=== PATIENT | male | born 1940 | race Caucasian/White ===

== ENCOUNTER 2019-10-12 12:02 | Observation (INO) | payer MEDICARE, OTHER ==
[~2019-10-12] VITALS: Ht 177.8 cm; Wt 107.4 kg
[~2019-10-12 12:02] MED LIST: ASPI325 PO; ASPI81CH PO; AZELASTINE205.5 MCG/; Aspir 8181 MG PO; Avodart0.5 MG GT; BACL10 PO; BENADRYL PO; DESO.05TCA; ELIQUIS5 MG PO; IBUP800 PO; IBUPROFEN200 MG; LOVA20 PO; METR70GEL; MULVITMINF PO; Mobic15 MG; Norco 5-325 Ta1 EACH PO; OMEP20ER; OTC ANTACID; Senna8.6 MG PO; TAMS.4ER PO; TEMA30; TRAM50 PO
[2019-10-12 12:31] LABS: BASOPHILS ABSOLUTE AUTO 0.04 K/mm3 (0.00-0.23); BASOPHILS PERCENT AUTO 1 % (0-2); EOSINOPHILS ABSOLUTE AUTO 0.31 K/mm3 (0.00-0.68); EOSINOPHILS PERCENT AUTO 5 % (0-6); Hematocrit 49.2 % (37.0-53.0); Hemoglobin 15.5 g/dL (13.5-17.5); IMMATURE GRAN ABSOLUTE AUTO 0.02 K/mm3 (0.00-0.10); IMMATURE GRAN PERCENT AUTO 0 % (0-1); LYMPHOCYTES ABSOLUTE AUTO 1.09 K/mm3 (0.84-5.20); LYMPHOCYTES PERCENT AUTO 16 % (21-46); MONOCYTES ABSOLUTE AUTO 0.55 K/mm3 (0.16-1.47); MONOCYTES PERCENT AUTO 8 % (4-13); Mean Corpuscular HGB 27.8 pg (26.0-34.0); Mean Corpuscular HGB Conc 31.5 g/dL (31.5-36.5); Mean Corpuscular Volume 88 fL (80-100); Mean Platelet Volume 10.7 fL (9.1-12.4); NEUTROPHILS ABSOLUTE AUTO 4.85 K/mm3 (1.96-9.15); NEUTROPHILS PERCENT AUTO 71 % (41-73); Platelet Count 154 K/mm3 (150-400); RDW Coefficient Variation 15.7 % (11.7-14.2); RDW Standard Deviation 50.5 fL (35.1-46.3); Red Blood Cell Count 5.58 M/mm3 (4.30-5.90); White Blood Cell Count 6.86 K/mm3 (4.00-11.30)
[2019-10-12 12:51] LABS: Albumin, Blood 3.8 g/dL (3.4-5.0); Bilirubin, Total 0.9 mg/dL (0.1-1.0); Calcium, Blood 9.3 mg/dL (8.5-10.1); Creatinine, Blood 1.68 mg/dL (0.60-1.20); Globulin, Blood 3.8 g/dL (2.2-4.0); Potassium, Blood 4.9 mmol/L (3.5-5.5); Total Protein, Blood 7.6 g/dL (6.4-8.2); Troponin I 0.024 ng/mL (0.000-0.040)
[2019-10-12] MEDS ORDERED: TEMA30 PO (13:16)
[2019-10-12] MEDS ORDERED: TORSE20 PO (13:17)
[2019-10-12] MEDS ORDERED: AZELASTINE137 MCG/0. (13:18)
[2019-10-12] MEDS ORDERED: POTA10T PO (13:20)
[2019-10-12] MEDS ORDERED: FUROSEMIDE40 MG PO (13:20)
[2019-10-12] MEDS ORDERED: Mobic15 MG PO (13:22)
[2019-10-12] MEDS ORDERED: OMEPRAZOLE MAGN20 MG PO (13:27)
[2019-10-12] MEDS ORDERED: LOVA40 PO (13:28)
[2019-10-12] MEDS ORDERED: Flonase 0.05% N16 GM (13:45)
[2019-10-12] MEDS ORDERED: Ibuprofen Ib200 MG PO (13:45)
--- NOTE | 2019-10-12 17:17 | NUR ---
PT ADMITTED TODAY FOR CP. PATIENT HAS NO COMPLAINTS OF PAIN, SOB, OR NV. HE IS A/O X 4 AND INDEPENDENT IN THE ROOM. HE IS ABLE TO EXPRESS ANY NEEDS. TELE REPORTS FREQUENT PVC'S , RIGHT BBB, AND PAC'S. DOCTOR NOTIFIED. PATIENT IS IN NO DISTRESS. HE IS RESTING IN BED AT THIS TIME.
--- NOTE | 2019-10-12 22:44 | NUR ---
1930 PT RESTING COMFORTABLY IN BED; DENIES CHEST PAIN OR SOB; ALERT AND ORIENTED X 4; PT TAUGHT TO CALL THIS NURSE ANY CHEST PAIN, HEADACHE, SOB OR ANYTHING JUST DOESN'T FEEL RIGHT REENA WITH ACKNOWLEDGEMENT NOTED.
--- NOTE | 2019-10-13 04:15 | NUR ---
SHIFT SUMMARY: 79 Y/O MALE RESTED COMFORTABLY ALL SHIFT; DENIES CHEST PAIN, NAUSEA OR DYSPNEA; TELEMETRY REFLECTS NSR WITH OCCASIONAL PVC/PAC WITH HEART RATE 66 PER HANNAH--DRILLING MANAGER; ALERT AND ORIENTED X 4; LAST TROPONIN .037 AT 0137; BED LOW POSITION WITH CALL LIGHT AT SIDE.
--- NOTE | 2019-10-13 11:00 | NUR ---
PT TO DISCHARGE HOME. NO NEW MEDS. NURSE INSTRUCTED PATIENT AND TO FOLLOW UP WITH PCP. PATIENT HAD IV REMOVED, NO SS OF INFECTION NOTED. PATIENT TO DRESS SELF AND WILL BE WALKED OUT BY STAFF.
== END 2019-10-13 11:45 | disposition home or self-care (01) ==
LOC: ER 12:02 → MEDS 12:03 → ENPENDDIS 10-13 10:46 → MEDS 10-13 11:45
PROVIDERS: Physician Assistant; ADMIT Hospitalist
DX: R07.89 Other chest pain (principal); I48.92 Unspecified atrial flutter; N18.3 Chronic kidney disease, stage 3 (moderate); I50.32 Chronic diastolic (congestive) heart failure; K21.9 Gastro-esophageal reflux disease without esophagitis; E78.5 Hyperlipidemia, unspecified; Z96.653 Presence of artificial knee joint, bilateral; Z79.899 Other long term (current) drug therapy; Z90.49 Acquired absence of other specified parts of digestive tract; Z87.891 Personal history of nicotine dependence
CPT/HCPCS: 36415; 71046; 80053; 83690; 83880; 84484; 85025; 93005; 93010; 99285-25; G0378

== ENCOUNTER 2021-05-27 14:28 | Emergency (ER) | payer MEDICARE, OTHER ==
[~2021-05-27] VITALS: Ht 177.8 cm; Wt 102.1 kg
[~2021-05-27 14:28] MED LIST changes: +AZELASTINE137 MCG/0.; +FUROSEMIDE40 MG PO; +Flonase 0.05% N16 GM; +Ibuprofen Ib200 MG PO; +LOVA40 PO; +Mobic15 MG PO; +OMEPRAZOLE MAGN20 MG PO; +POTA10T PO; +TEMA30 PO; +TORSE20 PO
[2021-05-27 16:10] LABS: BASOPHILS ABSOLUTE AUTO 0.06 K/mm3 (0.00-0.23); BASOPHILS PERCENT AUTO 1 % (0-2); EOSINOPHILS ABSOLUTE AUTO 0.21 K/mm3 (0.00-0.68); EOSINOPHILS PERCENT AUTO 4 % (0-6); Hematocrit 45.3 % (37.0-53.0); Hemoglobin 13.9 g/dL (13.5-17.5); IMMATURE GRAN ABSOLUTE AUTO 0.01 K/mm3 (0.00-0.10); IMMATURE GRAN PERCENT AUTO 0 % (0-1); LYMPHOCYTES ABSOLUTE AUTO 1.24 K/mm3 (0.84-5.20); LYMPHOCYTES PERCENT AUTO 21 % (21-46); MONOCYTES ABSOLUTE AUTO 0.58 K/mm3 (0.16-1.47); MONOCYTES PERCENT AUTO 10 % (4-13); Mean Corpuscular HGB 25.8 pg (26.0-34.0); Mean Corpuscular HGB Conc 30.7 g/dL (31.5-36.5); Mean Corpuscular Volume 84 fL (80-100); Mean Platelet Volume 10.3 fL (9.1-12.4); NEUTROPHILS PERCENT AUTO 64 % (41-73); Platelet Count 163 K/mm3 (150-400); Red Blood Cell Count 5.39 M/mm3 (4.30-5.90)
[2021-05-27 16:27] LABS: Albumin, Blood 3.6 g/dL (3.4-5.0); Albumin/Globulin Ratio 0.9 (0.8-1.8); Bilirubin, Total 1.1 mg/dL (0.1-1.0); Bun/Creatinine Ratio 10.9 (12.0-20.0); Creatinine, Blood 1.83 mg/dL (0.60-1.20); Globulin, Blood 3.9 g/dL (2.2-4.0); Potassium, Blood 4.3 mmol/L (3.5-5.5); Total Protein, Blood 7.5 g/dL (6.4-8.2)
[2021-05-27 16:58] LABS: Prothrombin Time Results >90.0 Sec (9.7-11.5)
[2021-05-27 17:00] LABS: International Normalized Ratio >10.00
[2021-05-27 17:51] LABS: Free Thyroxine 0.9 ng/dL (0.70-1.60); Magnesium, Blood 2.1 mg/dL (1.6-2.4)
[2021-05-27 17:53] LABS: Phosphorus, Blood 3.6 mg/dL (2.5-4.9); Thyroid Stimulating Hormone 3.17 uIU/mL (0.360-4.800)
== END 2021-05-27 19:01 | disposition home or self-care (01) ==
LOC: ER 14:28
PROVIDERS: Physician Assistant
DX: R79.1 Abnormal coagulation profile (principal); E78.5 Hyperlipidemia, unspecified; I48.92 Unspecified atrial flutter; I49.3 Ventricular premature depolarization; Z87.891 Personal history of nicotine dependence
CPT/HCPCS: 36415; 80053; 83735; 84100; 84439; 84443; 85025; 85610; 93005; 93010; 99283-25; A9270

== ENCOUNTER 2022-02-03 09:55 | Day surgery (SDC) | payer MEDICARE, OTHER ==
[~2022-02-03] VITALS: Ht 177.8 cm; Wt 101.2 kg
[2022-02-03] MEDS ORDERED: LEVOTHYROXINE (10:52)
[2022-02-03] MEDS ORDERED: ASPI81CH (10:52)
[2022-02-03] MEDS ORDERED: Lovastatin20 MG (10:52)
[2022-02-03] MEDS ORDERED: Coumadin2 MG (10:52)
[2022-02-03] MEDS ORDERED: OMEP20ER (10:52)
--- NOTE | 2022-02-03 10:55 | NUR ---
02/03/22 1055 ANIYA LANDERS TETRACAINE EYE DROPS GIVEN AT 10:43, PLEGETTE PLACED AT 10:47
== END 2022-02-03 12:16 | disposition home or self-care (01) ==
LOC: ORSCSDS 09:55
PROVIDERS: Ophthalmology
PROC: 08RJ3JZ Replacement of Right Lens with Synthetic Substitute, Percutaneous Approach (ICD-10-PCS; principal; 2022-02-03 11:30)
DX: H25.11 Age-related nuclear cataract, right eye (principal); I12.9 Hypertensive chronic kidney disease with stage 1 through stage 4 chronic kidney disease, or unspecified chronic kidney disease; N18.9 Chronic kidney disease, unspecified; E07.9 Disorder of thyroid, unspecified; Z79.899 Other long term (current) drug therapy; Z79.01 Long term (current) use of anticoagulants; Z79.82 Long term (current) use of aspirin
CPT/HCPCS: J2001; J2250; J3010; J3301; J7040; V2632

== ENCOUNTER 2022-02-12 08:56 | Day surgery (SDC) | payer MEDICARE, OTHER ==
[~2022-02-12] VITALS: Ht 177.8 cm; Wt 101.9 kg
[~2022-02-12 08:56] MED LIST changes: +ASPI81CH; +Coumadin2 MG; +LEVOTHYROXINE; +Lovastatin20 MG
== END 2022-02-12 10:58 | disposition home or self-care (01) ==
LOC: ORSCSDS 08:56
PROVIDERS: Ophthalmology
PROC: 08RK3JZ Replacement of Left Lens with Synthetic Substitute, Percutaneous Approach (ICD-10-PCS; principal; 2022-02-12 10:30)
DX: H25.12 Age-related nuclear cataract, left eye (principal); I10 Essential (primary) hypertension; I48.91 Unspecified atrial fibrillation; R06.02 Shortness of breath; K21.9 Gastro-esophageal reflux disease without esophagitis; E03.9 Hypothyroidism, unspecified; E66.9 Obesity, unspecified; Z68.35 Body mass index [BMI] 35.0-35.9, adult; Z79.01 Long term (current) use of anticoagulants; Z79.899 Other long term (current) drug therapy
CPT/HCPCS: J2001; J2250; J3010; J3301; J7040; V2632

== ENCOUNTER 2022-10-27 12:41 | Inpatient (IN) | payer MEDICARE, OTHER ==
[~2022-10-27] VITALS: Ht 177.8 cm; Wt 90.6 kg
[~2022-10-27 12:41] MED LIST changes: -Coumadin2 MG; +Coumadin2 MG PO; -LEVOTHYROXINE; +LEVSOD25 PO; -Lovastatin20 MG; +Lovastatin20 MG PO; +OMEP20ER PO
[2022-10-27 13:14] LABS: Hematocrit 48.2 % (37.0-53.0); Hemoglobin 15.8 g/dL (13.5-17.5); Mean Corpuscular HGB 28.3 pg (26.0-34.0); Mean Corpuscular HGB Conc 32.8 g/dL (31.5-36.5); Mean Corpuscular Volume 86 fL (80-100); Mean Platelet Volume 10.6 fL (9.1-12.4); NRBC ABSOLUTE 0.02 K/mm3 (0.00-0.02); NRBC Auto 0.3 /100 WBC (0.0-0.2); Platelet Count 227 K/mm3 (150-400); RDW Coefficient Variation 18.4 % (11.7-14.2); RDW Standard Deviation 56.1 fL (35.1-46.3); Red Blood Cell Count 5.59 M/mm3 (4.30-5.90); White Blood Cell Count 6.52 K/mm3 (4.00-11.30)
[2022-10-27 13:40] LABS: Albumin, Blood 2.6 g/dL (3.4-5.0); Albumin/Globulin Ratio 0.5 (0.8-1.8); Bilirubin, Total 3.8 mg/dL (0.1-1.0); Bun/Creatinine Ratio 26.7 (12.0-20.0); Calcium, Blood 9.6 mg/dL (8.5-10.1); Creatinine, Blood 1.61 mg/dL (0.60-1.20); Globulin, Blood 5.6 g/dL (2.2-4.0); Potassium, Blood 3.8 mmol/L (3.5-5.5); Total Protein, Blood 8.2 g/dL (6.4-8.2)
[2022-10-27 14:09] LABS: Influenza B, PCR NEGATIVE (NEGATIVE); Resp Syncytial Virus, PCR NEGATIVE (NEGATIVE); SARS-Cov-2 (COVID-19) PCR, MMC NEGATIVE (NEGATIVE)
[2022-10-27 14:15] LABS: Influenza A, PCR POSITIVE (NEGATIVE)
[2022-10-27 14:25] LABS: BAND PERCENT MAN 5 % (0-8); BASOPHILS PERCENT MAN 0 % (0-2); EOSINOPHILS PERCENT MAN 0 % (0-6); LYMPHOCYTES ABSOLUTE MAN 0.97 K/mm3 (0.84-5.20); LYMPHOCYTES PERCENT MAN 15 % (21-46); MONOCYTES ABSOLUTE MAN 0.39 K/mm3 (0.16-1.47); MONOCYTES PERCENT MAN 6 % (4-13); NEUTROPHILS ABSOLUTE MAN 5.15 K/mm3 (1.96-9.15); SEG NEUTROPHILS PERCENT MAN 74 % (41-73); TOTAL CELLS COUNTED 100
[2022-10-27 15:19] LABS: PCO2 Arterial 33.2 mmHg (35-45); PO2 Arterial 50.2 mmHg (80-100); pH Blood Arterial 7.51 (7.35-7.45)
[2022-10-27 15:49] LABS: International Normalized Ratio 1.74; Prothrombin Time Results 17.6 Sec (9.7-11.5)
[2022-10-27 16:06] LABS: Bilirubin, Direct 2.2 mg/dL (0.0-0.3); Bilirubin, Indirect 1.2 mg/dL (0.1-0.7); Bilirubin, Total 3.4 mg/dL (0.1-1.0)
--- NOTE | 2022-10-27 18:25 | NUR ---
ADDMISSION SUMMARY PT HAS BEEN RESTING IN BED SINCE ARRIVAL. PT ARRIVED TO THE DEPARTMENT BY GURNEY, THEY WERE TRANSFERRED BY A MODERATE 2-PERSON PIVOT TRANSFER, THEY WERE UNSTEADY ON THEIR FEET AND DID NOT FOLLOW INSTRUCTION WELL. PT IS ORIENTED TO SELF ONLY, MULTIPLE ATTEMPTS TO REORIENT WERE MADE UNSUCCESSFULLY. PT WAS PLEASANT AND COOPERATIVE, THEY ARE BEING VISUALLY MONITORED ON CENTRAL MONITORING. NORMAL SALINE BOLUS WAS COMPLETED AND MAINTENANCE IV FLUIDS WERE STARTED.
--- NOTE | 2022-10-27 18:52 | NUR ---
MEDICAL POA Daughter Guillermina Powell called and states that she is medical POA. [phone].
--- NOTE | 2022-10-27 19:38 | NUR ---
KAHLIL - WANDA ONTIVEROS (DAUGHTER) [phone]
--- NOTE | 2022-10-27 21:32 | NUR ---
PHYSICIAN NOTIFIED PT CONT TO ATTEMPT TO CLIMB OUT OF BED. CONFUSED AND PULLING AT LINES AND 02 TUBING. ORDERS FOR ONE TIME DOSE OF SEOQUEL 25 MG NOW.
--- NOTE | 2022-10-27 21:47 | NUR ---
UPDATE SEROQUEL HELD D/T QTC PROLONGATION
[2022-10-28 03:53] LABS: Hematocrit 42.7 % (37.0-53.0); Mean Corpuscular HGB Conc 32.8 g/dL (31.5-36.5); Mean Corpuscular Volume 85 fL (80-100); Platelet Count 169 K/mm3 (150-400); RDW Coefficient Variation 17.4 % (11.7-14.2); RDW Standard Deviation 54.4 fL (35.1-46.3)
[2022-10-28 04:10] LABS: Prothrombin Time Results 20.1 Sec (9.7-11.5)
[2022-10-28 04:13] LABS: Bun/Creatinine Ratio 29.9 (12.0-20.0); Calcium, Blood 8.6 mg/dL (8.5-10.1); Creatinine, Blood 1.27 mg/dL (0.60-1.20); Magnesium, Blood 2.2 mg/dL (1.6-2.4); Potassium, Blood 4.3 mmol/L (3.5-5.5)
--- NOTE | 2022-10-28 05:44 | NUR ---
SHIFT SUMMARY PT ALERT TO SELF. CONFUSED AND ATTEMPTING TO PULL AT LINES AND GET OUT OF BED. PHYSICIAN NOTIFIED AND ORDERS FOR 1 MG OF ATIVAN GIVEN. PT RESTING AFTER ATIVAN GIVEN. PT CONT TO HAVE NONSENSICAL SPEECH T/O SHIFT. BED ALARM IN PLACE. HR STABLE. BP STABLE. OXYGEN SATURATION MAINTAINED ABOVE 92% ON 6 L VIA NC. NO CP OR PRESSURE REPORTED. CALL LIGHT WITHIN REACH. PT HAS CONDOM CATH IN PLACE D/T URINARY INCONTINENCE. DRAINING TO GRAVITY. PT FARHEENENLINDEN ON CAMERA. WILL CONT TO MONITOR UNTIL REPORT GIVEN TO ARTEMIO RN.
--- NOTE | 2022-10-28 17:54 | NUR ---
PT SUMMARY: PT REMAINS CONFUSED AND AGITATED AT THE BEGINNING OF THE SHIFT, PULLING ON LINES AND TUBINGS, UNABLE TO FOLLOW DIRECTIONS. VITALS HRR AFIB 90'S, SBP 120'S. SATS ABOVE 90% ON 4-6L OF O2, PT DESATS WITH EXERTION, HAS WET COUGH, BREATHING TX PER RT, AFEBRILE. PT WORKED WITH PT TODAY PT SAT UP ON THE SIDE OF THE BED PT STILL UNABLE TO KEEP TRACK OF INSTRUCTIONS AND DESATS WITH ACTIVITY. PT SELPT MOST OF THE SHIFT AFTER BED BATH WAS GIVEN, CONDOM CATH STILL IN PLACE DRAINING YELLOW URINE VIA GRAVITY, PT PULLED THE CONDOM CATH TWICE AND WAS REPLACED. PT EATING AND DRINKING INDEPENDENTLY. NO OTHER ISSUES ENCOUNTERED SON AND DAUGHTER CALLED AND WAS GIVEN UPDATE REGARDING PT'S STATUS. PT NOW RESTING IN BED CALL LIGHTS IN REACH WILL REPORT TO ONCOMING SHIFT
--- NOTE | 2022-10-28 20:46 | NUR ---
ASSUMPTION OF CARE THIS RN ASSUMED CARE OF PATIENT AT 1900. REPORT TAKEN FROM SUMAYA RN. PATIENT IS ALERT AND ORIENTED TO SELF ONLY. PATIENT APPEARS TO BE HALLUCINATING AND REACHING OUT TO GRAB THE AIR. PATIENT ATTEMPTED TO GET OUT OF BED AFTER SHIFT CHANGE. PATIENT DESATS EASILY WITH ACTIVITY. O2 INCREASED FROM 4L TO 8L AT THIS TIME; THIS RN WILL TITRATE NEEDED FOR SPO2 >92%. BP STABLE. AFEBRILE. AFIB ON MONITOR WITH HR 90-100'S. PATIENT WITH SIDE RAILS UP, BED ALARM ON, AND ON CAMERA. PATIENT MEDICATED PER EMAR. PATIENT WAS ABLE TO USE URINAL WITH THIS RN AFTER STATING THAT HE "NEEDED TO PEE". URINE NOTED TO BE LEENA IN COLOR. BED IN LOWEST POSITION AND CALL LIGHT WITHIN REACH. THIS RN WILL CONTINUE TO MONITOR CLOSELY FOR SAFETY AND PROVIDE INTERVENTIONS NEEDED/ORDERED.
[2022-10-29 03:50] LABS: Hematocrit 40.3 % (37.0-53.0); Hemoglobin 13.2 g/dL (13.5-17.5); Mean Corpuscular HGB 28.2 pg (26.0-34.0); Mean Corpuscular HGB Conc 32.8 g/dL (31.5-36.5); Mean Corpuscular Volume 86 fL (80-100); Mean Platelet Volume 9.7 fL (9.1-12.4); NRBC ABSOLUTE 0.02 K/mm3 (0.00-0.02); NRBC Auto 0.3 /100 WBC (0.0-0.2); Platelet Count 188 K/mm3 (150-400); RDW Coefficient Variation 17.7 % (11.7-14.2); RDW Standard Deviation 55.8 fL (35.1-46.3); Red Blood Cell Count 4.68 M/mm3 (4.30-5.90); White Blood Cell Count 6.12 K/mm3 (4.00-11.30)
[2022-10-29 04:03] LABS: International Normalized Ratio 2.69; Prothrombin Time Results 26.5 Sec (9.7-11.5)
[2022-10-29 04:28] LABS: Albumin, Blood 1.8 g/dL (3.4-5.0); Albumin/Globulin Ratio 0.4 (0.8-1.8); Bilirubin, Total 2.8 mg/dL (0.1-1.0); Bun/Creatinine Ratio 28.3 (12.0-20.0); Calcium, Blood 8.3 mg/dL (8.5-10.1); Creatinine, Blood 1.13 mg/dL (0.60-1.20); Globulin, Blood 4.7 g/dL (2.2-4.0); Potassium, Blood 3.4 mmol/L (3.5-5.5); Total Protein, Blood 6.5 g/dL (6.4-8.2)
[2022-10-29 05:11] LABS: BAND PERCENT MAN 4 % (0-8); BASOPHILS PERCENT MAN 0 % (0-2); EOSINOPHILS ABSOLUTE MAN 0.06 K/mm3 (0.00-0.68); EOSINOPHILS PERCENT MAN 1 % (0-6); LYMPHOCYTES ABSOLUTE MAN 0.61 K/mm3 (0.84-5.20); LYMPHOCYTES PERCENT MAN 10 % (21-46); METAMYELOCYTE ABSOLUTE MAN 0.12 K/mm3 (0.00-0.00); METAMYELOCYTE PERCENT MAN 2 % (0-0); MONOCYTES ABSOLUTE MAN 0.12 K/mm3 (0.16-1.47); MONOCYTES PERCENT MAN 2 % (4-13); SEG NEUTROPHILS PERCENT MAN 81 % (41-73); TOTAL CELLS COUNTED 100
--- NOTE | 2022-10-29 05:37 | NUR ---
SHIFT SUMMARY PATIENT HAS INCREASED OXYGEN DEMANDS THROUGHOUT THIS SHIFT. PATIENT CHANGED TO HI-FLOW NC WITH O2 8-12L. PATIENT DESATS QUICKLY WHEN HE REMOVES O2 FROM NOSE OR WITH ANY ACTIVITY. PATIENT SLOW TO RECOVER AND REQUIRED O2 TO BE AT 15L SEVERAL TIMES AFTER DESATTING TO THE LOW 80'S. TACHYPNEA NOTED. RT CONSULTED ON SEVERAL OCCASIONS DUE TO PATIENT'S INCREASED O2 DEMANDS. LS COARSE THROUGHOUT. PATIENT WITH WEAK, MOIST, NONPRODUCTIVE COUGH. PATIENT ENCOURAGED THROUGHOUT THIS SHIFT TO COUGH AND CLEAR SECRETIONS HOWEVER PATIENT IS NOT FOLLOWING COMMANDS WELL AND HAS NOT ALLOWED THIS RN TO SUCTION MOUTH TO ASSIST WITH CLEARING OF SECRETIONS. ON 8L O2 AT THIS TIME WITH SPO2 >90%. TITRATING O2 NEEDED TO MAINTAIN O2 SATS >90%. BP STABLE. AFEBRILE. PATIENT ALERT/LETHARGIC AT TIMES AND CONTINUES TO ONLY BE ORIENTED TO SELF. PATIENT HAS BEEN MOSTLY COOPERATIVE WITH CARE. PATIENT CONTINUES TO REACH OUT AND APPEARS TO HAVE VISUAL HALLUCINATIONS WITH SPEECH THAT IS MUMBLED AND INCOMPREHENSIBLE. PATIENT CONTINENT/INCONTINENT. CALL LIGHT WITHIN REACH. BED IN LOWEST POSITION, BED ALARM ON, CAMERA ON IN ROOM. THIS RN WILL CONTINUE TO MONITOR CLOSELY UNTIL SHIFT CHANGE AT 0700.
[2022-10-29 10:49] LABS: Base Excess Venous 5.7 mmol/L; Bicarbonate Venous 28.1 mmol/L (24.0-30.0); PCO2 Venous 40.5 mmHg (38-42); pH Blood Venous 7.47 (7.34-7.37)
--- NOTE | 2022-10-29 11:54 | NUR ---
UPDATE NOON VITALS, PT SLEEPING WITH O2 SATS 94 ON 8L HFNC. PT O2 TITIRATED TO 5L, SATS DOWN TO 88%, TITRATED TO 7L. PT PULLED HIS ARM AWAY FROM THIS RN BP CUFF WAS ATTEMPTING TO BE APPLIED. PT INFORMED THAT VS NEED TO BE DONE, PT COOPERATIVE. PT MOANING NONSENSICAL SPEECH.
--- NOTE | 2022-10-29 13:03 | NUR ---
CENTRAL MONITOR CONTACTED THIS RN STATING THAT PT IS LOOKING THOUGH HE IS CLIMBING OUT OF BED. THIS RN ENTERED ROOM, PT HAD HIS BLANKETS OFF AND GOWN TAKEN OFF. PT GRABBING AT HIS GROIN AREA. PT ASKED IF HE HAS ANY PAIN IN HIS GROIN, PT SAID "NO" SLOWLY. WHEN PALPATING PT LOWER ABD, NO TENDERNESS NOTED. PT REGOWNED AND BOOSTED IN BED. PT WAS ABLE TO FOLLOW INSTRUCTION OF DOLLYMAN TO OPEN HIS EYES. BED IN LOWEST POSITION. CALL LIGHT WITHIN REACH.
--- NOTE | 2022-10-29 14:22 | NUR ---
PT INFORMED OF MEDS AND OTHER CARE BEFORE THEY WERE GIVEN OR PERFORMED. PT COOPERATIVE BUT DOES NOT APPEAR TO FULLY UNDERSTAND THE MEDS AND CARE WHEN GIVEN AND PERFORMED.
--- NOTE | 2022-10-29 17:55 | NUR ---
SHIFT SUMMARY PT ORIENTED TO SELF ONLY. PT LETHARGIC FOR ENTIRE SHIFT, BRIEFLY TRIES TO OPEN EYES AND FOLLOW INSTRUCTIONS WHEN PROMPTED. PT HR SR-ST THROUGHOUT SHIFT RANGING 90-100'S. PT TACHYPNEIC AND ON 6-9L HFNC, TITRATING O2 PRN. PT HAS PULLED HIS OXYGEN MULTIPLE TIMES DURING SHIFT, SATS WOULD DROP TO LOW 80'S. PT REORIENTED EASILY. SATS WOULD RETURN SLOWLY TO 90'S ONCE OXYGEN WAS RE-APPLIED AND INCREASED TO 9L. OTHER VSS THROUGHOUT SHIFT. NO REPORT OF CHEST PAIN/PRESSURE THROUGHOUT SHIFT. PT INCONTINENT OF URINE, ATTENDS CHANGED MULITPLE TIMES DURING SHIFT. PT ABLE TO TAKE PO MEDS THIS MORNING AND EAT SMALL PORTIONS OF HIS MEALS. PT BEGAN COUGHING ON HIS WATER DURING EVENING MEDS, PT DINNER TRAY HELD. SPEECH THERAPY ORDERED FOR SWALLOW EVAL. PT ASSISTS WITH TURNING SELF IN BED WHEN PROMPTED.
--- NOTE | 2022-10-29 23:11 | NUR ---
ASSUMPTION OF CARE THIS RN ASSUMED CARE OF PATIENT AT 1900. REPORT TAKEN FROM FILI WALL. PATIENT CONTINUES TO ONLY BE ORIENTED TO SELF. LETHARGIC AT TIMES. COOPERATIVE WITH CARE. TALKS ABOUT PEOPLE IN HIS ROOM AND REACHES OUT. ON 9L HFNC WITH SPO2 >90% AT THIS TIME; TITRATING NEEDED TO MAINTAIN O2 SATS. PATIENT WITH TACHYPNEA WITH RR 26-30. BP STABLE. AFIB ON MONITOR WITH HR 100-110'S AT THIS TIME. PATIENT DENIES ALL PAIN. BED ALARM AND CAMERA ON FOR SAFETY. PATIENT FREQUENTLY ATTEMPTS TO REMOVE NASAL CANNULA, UNDRESSES SELF, AND TO GET OUT OF BED. GENERALIZED WEAKNESS NOTED. LS COARSE T/O. PATIENT DESATS QUICKLY WITH ACTIVITY OR WHEN NASAL CANNULA REMOVED FROM NOSE. NPO AT THIS TIME DUE TO ASPIRATION RISK AND INABILITY TO FOLLOW COMMANDS. BED IN LOWEST POSITION AND CALL LIGHT WITHIN REACH. THIS RN WILL REVIEW CHART AND CONTINUE TO MONITOR AND PROVIDE INTERVENTIONS NEEDED/ORDERED UNTIL SHIFT CHANGE.
[2022-10-30 04:55] LABS: Albumin, Blood 1.9 g/dL (3.4-5.0); Albumin/Globulin Ratio 0.4 (0.8-1.8); Bun/Creatinine Ratio 24.1 (12.0-20.0); Calcium, Blood 8.8 mg/dL (8.5-10.1); Creatinine, Blood 1.16 mg/dL (0.60-1.20); Globulin, Blood 5.1 g/dL (2.2-4.0); Potassium, Blood 3.4 mmol/L (3.5-5.5)
[2022-10-30 05:12] LABS: International Normalized Ratio 3.15; Prothrombin Time Results 30.7 Sec (9.7-11.5)
--- NOTE | 2022-10-30 05:41 | NUR ---
SHIFT SUMMARY NO CHANGES IN NEURO STATUS SINCE PREVIOUS NOTE. SEE ASSESSMENT. PATIENT CONTINUES TO BE IN AFIB WITH BBB AND FREQUENT PVC'S. HR 90-110'S. AFEBRILE. BP STABLE. 6-9L HFNC WITH SPO2 >90%, TITRATING NEEDED TO MAINTAIN O2 SATS. NO PO MEDS GIVEN DUE TO PATIENT NOT WAKING UP ENOUGH OR FOLLOWING COMMANDS. PATIENT DENIES PAIN. ABLE TO MAKE BASIC NEEDS KNOWN WITH DIRECT QUESTIONS IF NOT TOO LETHARGIC. ON CAMERA FOR SAFETY, BED ALARM ON. INCONTINENCE WITH LEENA COLORED URINE NOTED. BED IN LOWEST POSITION AND CALL LIGHT IN PLACE. THIS RN WILL CONTINUE TO MONITOR UNTIL SHIFT CHANGE AT 0700.
--- NOTE | 2022-10-30 11:40 | NUR ---
Patient is sitting one a chair and resting. He mumbles and fades off midsentence and so communication is strained. He does welcome prayer and shares about his son being part of the [employer]. I gladly provide prayer and acalming presence. Patient responded well and showed signs of being encouraged in his pursuit to be well.
[2022-10-30] MEDS ORDERED: K-Dur10 MEQ PO (16:56)
--- NOTE | 2022-10-30 17:01 | NUR ---
UPDATE PT SATS DOWN TO 86% ON MNITOR. THIS RN ENTERED ROOM, PT LEANING TO HIS RIGHT IN HIS BED FIDGETING WITH TELE BOX. PT ATTENDS WERE PULLED OFF AND SITTING AT THE FOOT OF THE PT BED. PT BOOSTED IN BED AND HOB ELVATED ALONG WITH OXYGE TITRATING TO 11L HFNC. NEW ATTENDS IN PLACE. PT ATTEMPED TO PULL OFF ATTENDS MULTIPLE TIMES WHILE THIS RN IS IN ROOM, PT EVENTUALLY PULLED ATTENDS OFF. URINAL SUPPLIED FOR PT. PT CONTINUES TO FIDGET AND CLIMB OUT OF BED. PT REQUIRING CONSTANT CUES FROM RN.
--- NOTE | 2022-10-30 17:13 | NUR ---
RT CONTACTED AND INFORMED THAT PT IS CURRENTL AT 14 L HFNC WITH SATS 88%. RT INFORMED RN THAT HE IS NOT WORRIED ABOUT PT BEING 88% AT THIS TIME. RECOMMENDED TO TRY AND LET PT SETTLE A LITTLE AND SEE IF SATS GO UP. PT COTINUING TO PULL OFF NASAL CANULA, INSTRUCTED TO LEAVE CANULA ON.
--- NOTE | 2022-10-30 17:25 | NUR ---
DR CONTACTED ABOUT PT INCREASED OXYGEN DAMAND. OLANZAPINE ON PT EMAR RECOMMENDED IF PT DOES NOT BEGIN TO RELAX SOME AND INSTRUCTED TO WAIT TO SEE WHAT RT RECOMMENDS.
--- NOTE | 2022-10-30 17:59 | NUR ---
PT TOOK PO MEDS CRUSHED IN APPLE SAUCE. ZYPREXA AND COUMADIN GIVEN PER EMAR VIA CRUSHED AND IN APPLE SAUSCE. PT NEEDING CONSTANT CUES IN ORDER TO GIVE PO MEDS VIA APPLE SAUCE. PT CONTUEING TO ATTEMPT TO CLIMB OUT OF BED. PT REMINDED THAT HE IS AT [facility] AND THAT HE IS VERY ILL. PT RESPONDS "OH I AM?" PT APPEARS TO BE HAVING HALLUCINATIONS IN ROOM, REACHING OUT FOR THINGS NOT PRESENT HE MUMBLES NONSENSICAL WORDS. O2 SATS REMAIN 86-89% ON 14L HFNC. PT HAVING WET COUGHS.
--- NOTE | 2022-10-30 18:18 | NUR ---
SHIFT SUMMARY PT ORIENTED TO SELF THROUGHOUT SHIFT, STILL VERY CONFUSED AND LETHARGIC. HAD A DECENT DAY AT BEGINNING OF SHIFT FOLLOWING INSTRUCTIONS AND WORKING WITH PT/OT. SATS REMAINED IN 90'S ON 6-9L HFNC, PT HAD MULTIPLE TIMES OF PULLING OXYGEN OFF. SATS DROP TO 80'S QUICKLY WHEN 0XYGEN PULLED OFF, SATS RETURN TO 90'S SLOWLY ONCE OXYGEN IS REAPPLIED. HR REMAINED A-FIB IN THE 100-110'S AND STABLE BPS'. NO REPORT OF CHEST PAIN/PRESSURE. PT RESP RATE TACHY THROUGHOUT SHIFT RANGING 28-32 BPM. TOWARDS END OF SHIFT, PT BECAME RESTLESS AND BEGAN TRYING TO CLIMB OUT OF BED. SATS IN THE 80'S AT THIS TIME, SEE PREVIOUS NOTES. PT APPEARS TO BE HAVING HALLUCINATIONS TOWARDS END OF SHIFT. PT WAS FOLLOWING INSTRUCTIONS FOR MAJORITY OF SHIFT, PT NEEDING MANY CUES AND REMINDERS TO GET PT TO FOLLOW SIMPLE INSTRUCTIONS. RT AND DR INFORMED OF PT INCREASED OXYGEN DEMAND.
--- NOTE | 2022-10-30 22:36 | NUR ---
PATIENT UPDATE/ASSUMPTION OF CARE THIS RN ASSUMED CARE OF PATIENT AT 1900. REPORT TAKEN FROM FILI RN. AT TIME OF SHIFT CHANGE PATIENT WAS CONTINUALLY REMOVING HFNC AND HAD TO BE PLACED ON NON REBREATHER MASK TO MAINTAIN O2 SATS. PATIENT QUICKLY DROPPED TO 78-82% WHEN ON RA. PATIENT NOT ABLE TO BE REORIENTED AT THAT TIME AND ONLY ORIENTED TO SELF. THIS RN AND PREVIOUS RN PLACED LUBRICANT IN NOSE TO HELP WITH DRYNESS FROM NASAL CANNULA, HOWEVER PATIENT DID NOT ALLOW O2 IN NOSE. THIS RN CALLED MD ROBLES TO OBTAIN ORDER FOR BILATERAL SOFT WRIST RESTRAINTS, ORDER PLACED AT 1942 AND RESTRAINTS INITIATED. MD WITH ORDER FOR IV ATIVAN. PATIENT WAS GIVEN PO MEDS WITH APPLESAUCE WHILE SITTING UPRIGHT AND GIVEN WATER BEFORE ATIVAN WAS GIVEN. PATIENT APPEARED RELAXED WITH SPO2>92% AND WAS PLACED BACK ON HFNC. PATIENT CONTINUES TO BE ON 10L VIA HFNC WITH BILATERAL WRIST RESTRAINTS IN PLACE. BP STABLE. SPO2 REMAINS >92%. AFEBRILE. AFIB WITH HR 90-100'S. REPOSITIONING Q2HRS AND OFFERING FLUIDS/FOOD FREQUENTLY. PATIENT APPEARS TO BE RESTING AT THIS TIME. INCONTINENT OF URINE WITH NOTED LEENA COLORED URINE. CONDOM CATHETER IN PLACE TO ALLOW FOR REST. PATIENT CONTINUES TO ONLY BE ORIENTEED TO SELF AND CONFUSED BY CARE AND NOT ABLE TO BE REDIRECTED/ORIENTED. BED ALARM AND CAMERA ON. DAUGHTER NICOLÁS UPDATED ON PLAN OF CARE AND NEED FOR RESTRAINTS, DAUGHTER VERBALIZED UNDERSTANDING AND WAS AGREEABLE TO PLAN OF CARE AND RESTRAINTS. BED IN LOWEST POSITION AND CALL LIGHT WITHIN REACH. THIS RN WILL REVIEW CHART AND CONTINUE TO PROVIDE INTERVENTIONS NEEDED/ORDERED.
[2022-10-31 04:47] LABS: Albumin, Blood 1.8 g/dL (3.4-5.0); Albumin/Globulin Ratio 0.3 (0.8-1.8); Bilirubin, Total 2.2 mg/dL (0.1-1.0); Bun/Creatinine Ratio 27.4 (12.0-20.0); Calcium, Blood 8.8 mg/dL (8.5-10.1); Creatinine, Blood 1.06 mg/dL (0.60-1.20); Globulin, Blood 5.3 g/dL (2.2-4.0); Potassium, Blood 3.7 mmol/L (3.5-5.5); Total Protein, Blood 7.1 g/dL (6.4-8.2)
[2022-10-31 04:54] LABS: Prothrombin Time Results 47.8 Sec (9.7-11.5)
--- NOTE | 2022-10-31 05:29 | NUR ---
SHIFT SUMMARY NO CHANGES TO NEURO STATUS SINCE PREVIOUS NOTE. LS COARSE THROUGHOUT. PATIENT HAS BEEN ON 8L VIA HFNC THROUGHOUT THIS SHIFT WITH SPO2 >90%. BP STABLE. AFEBRILE. RR 26-28. SEE ASSESSMENT. PATIENT WITH SOFT BILATERAL WRIST RESTRAINTS IN PLACE. REPOSITIONING Q2HRS. PATIENT OFFERED WATER FREQUENTLY THROUGHOUT THIS SHIFT. PATIENT TOOK MEDS CRUSHED IN APPLESAUCE WELL. THIS RN NOTED NEW PETECHIAE RASH ON BACK. SEE ASSESSMENT. PATIENT HAS BEEN RESISTANT TO ROLLING FOR CARE DURING THIS SHIFT WHERE HE HAS PREVIOUS ASSISTED WITH ROLLING ON PREVIOUS NIGHT FOR THIS RN. OTHERWISE PATIENT HAS BEEN COOPERATIVE WITH MOST CARE. PATIENT WITH HOB ELEVATED. PRODUCTIVE FREQUENT COUGH NOTED, HARSHER AND MORE FREQUENT THAN PREVIOUS NIGHTS FOR THIS RN. FREQUENT CHECKS FOR SAFETY. BED ALARM AND CAMERA ON. BED IN LOWEST POSITION AND CALL LIGHT WITHIN REACH. THIS RN WILL CONTINUE TO MONITOR UNTIL SHIFT CHANGE AT 0700.
[2022-10-31 05:36] LABS: International Normalized Ratio 5.06
--- NOTE | 2022-10-31 06:35 | NUR ---
PATIENT UPDATE THIS RN SPOKE TO SHORT REGARDING CRITICAL INR OF 5.06. THIS RN UPDATED MD SHORT OF NEW PETECHIAE RASH ON BACK. NO NEW ORDERS AT THIS TIME. THIS RN WILL CONTINUE TO MONITOR UNTIL SHIFT CHANGE AT 0700.
[2022-10-31 11:29] LABS: BASOPHILS ABSOLUTE AUTO 0.06 K/mm3 (0.00-0.23); BASOPHILS PERCENT AUTO 1 % (0-2); EOSINOPHILS ABSOLUTE AUTO 0.04 K/mm3 (0.00-0.68); EOSINOPHILS PERCENT AUTO 0 % (0-6); Hematocrit 41.6 % (37.0-53.0); Hemoglobin 13.5 g/dL (13.5-17.5); IMMATURE GRAN ABSOLUTE AUTO 0.14 K/mm3 (0.00-0.10); IMMATURE GRAN PERCENT AUTO 1 % (0-1); LYMPHOCYTES ABSOLUTE AUTO 0.71 K/mm3 (0.84-5.20); LYMPHOCYTES PERCENT AUTO 7 % (21-46); MONOCYTES ABSOLUTE AUTO 0.43 K/mm3 (0.16-1.47); MONOCYTES PERCENT AUTO 4 % (4-13); Mean Corpuscular HGB 28.4 pg (26.0-34.0); Mean Corpuscular HGB Conc 32.5 g/dL (31.5-36.5); Mean Corpuscular Volume 87 fL (80-100); Mean Platelet Volume 9.9 fL (9.1-12.4); NEUTROPHILS ABSOLUTE AUTO 9.56 K/mm3 (1.96-9.15); NEUTROPHILS PERCENT AUTO 87 % (41-73); Platelet Count 249 K/mm3 (150-400); RDW Coefficient Variation 18.6 % (11.7-14.2); RDW Standard Deviation 58.4 fL (35.1-46.3); Red Blood Cell Count 4.76 M/mm3 (4.30-5.90); White Blood Cell Count 10.94 K/mm3 (4.00-11.30)
--- NOTE | 2022-10-31 18:42 | NUR ---
SHIFT SUMMARY PT ALERT PART OF DAY, RESPONDING TO SOME QUESTIONS, SOME OUT OF CONTEXT SPEECH. NEEDING SWR TO MAINTAINS LINES/OXYGEN TUBING. DOES PULL AT LINES STILL. ABLE TO TAKE OF RESTRAINTS WHEN SOMEONE IS IN ROOM TO REDIRECT. SON AND DIL IN ROOM FOR ABOUT AN HOUR THIS EVENING TO BE WITH PT. S02>90% ON 6L HHFNC. WEAK PRODUCTIVE COUGH. TELEMETRY SHOWS AFIB, HR MOSTLY 90'S-110'S. VSS. PT INCONTINENT OF URINE. ATTENDS C/D/I, LINEN CHANGE THIS SHIFT. BED BATH GIVEN. TYLENOL GIVEN PER PT STATE BACK ACHE. REPOSITIONED Q2H. ORAL CARE DONE X3. PT HAD DIFFICULTY SWALLOWING BREAKFAST, SUCTIONED FOOD OUT OF MOUTH. SPEECH THERAPY TO ASSESS, STATES HE WAS ABLE TO FOR THEM. TO WATCH PT A CASE BY CASE BASIS FOR SWALLOWING. PT HAS RASH ON BACK, SEE PICTURES IN CHART. CALL LIGHT IN REACH. PT RESTING IN ROOM.
--- NOTE | 2022-10-31 22:03 | NUR ---
ASSUMPTION OF CARE THIS RN ASSUMED CARE OF PATIENT AT 1900. REPORT TAKEN FROM RUSS WALL. PATIENT HAS BEEN ALERT AND ORIENTED TO SELF SO FAR THIS SHIFT. PATIENT ABLE TO MAKE BASIC NEEDS KNOWN AT THIS TIME. ANSWERING SIMPLE QUESTIONS APPROPRIATLY. PATIENT REMAINS IN SOFT BILATERAL WRIST RESTRAINTS AT THIS TIME TO PROTECT LINES/CORDS. REDIRECTABLE AND COOPERATIVE WITH CARE. RESTRAINTS REMOVED WHEN THIS RN IN THE ROOM. REPOSITIONING Q2HRS. OFFERING FLUIDS AND FOOD OFTEN. PATIENT ALLOWING THIS RN TO DO ORAL CARE SO FAR. PATIENT WITH STABLE BP. AFEBRILE. AFIB WITH HR 90-100'S. SPO2 >92% ON 6L VIA HFNC. BED ALARM AND CAMERA ON. FREQUENT CHECKS FOR SAFETY. BED IN LOWEST POSITION AND CALL LIGHT WITHIN REACH. THIS RN WILL REVIEW CHART AND CONTINUE TO MONITOR AND PROVIDE INTERVENTIONS NEEDED/ORDERED.
--- NOTE | 2022-11-01 04:41 | NUR ---
SHIFT SUMMARY NO CHANGES TO NEURO STATUS. SEE PREVIOUS NOTE. PATIENT CONTIUES TO NEED SBWR WHEN STAFF/FAMILY ARE NOT IN THE ROOM. PATIENT ABLE TO BE REDIRECTED. PT CONTINUES TO BE IN AFIB WITH HR 90-100'S. ON 6L HFNC WITH SPO2 >90%. BP STABLE. AFEBRILE. MEDS GIVEN CRUSHED WITH APPLESAUCE. PATIENT TOLERATED WELL. EXPIRATORY WHEEZES HEARD IN THE UPPER LOBES OF THE LUNGS, COARSE LS THROUGHOUT. PATIENT COOPERATIVE WITH CARE. CONTINUES TO BE REDIRECTABLE. FREQUENT CHECKS FOR SAFETY AND TO ENSURE ATTENDS DRY. Q2HR TURNS. FLUIDS AND FOOD BEING OFFERED WHEN PATIENT IS AWAKE. PATIENT DENIES PAIN. BED ALARM AND CAMERA ON, SIDE RAILS UP. BED IN LOWEST POSITION AND CALL LIGHT WITHIN REACH. THIS RN WILL CONTINUE TO MONITOR UNTIL SHIFT CHANGE AT 0700.
[2022-11-01 05:07] LABS: Albumin, Blood 1.8 g/dL (3.4-5.0); Albumin/Globulin Ratio 0.3 (0.8-1.8); Bilirubin, Total 1.8 mg/dL (0.1-1.0); Bun/Creatinine Ratio 22.6 (12.0-20.0); Calcium, Blood 8.7 mg/dL (8.5-10.1); Creatinine, Blood 1.15 mg/dL (0.60-1.20); Globulin, Blood 5.2 g/dL (2.2-4.0); Potassium, Blood 3.5 mmol/L (3.5-5.5)
[2022-11-01 05:08] LABS: Prothrombin Time Results 57.6 Sec (9.7-11.5)
[2022-11-01 05:17] LABS: International Normalized Ratio 6.18
--- NOTE | 2022-11-01 12:03 | NUR ---
ASSUMPTION OF CARE: PATIENT IS CONFUSED ONLY ORIENTED TO SELF AT TIME REQUIRING RESTRAINTS FOR SAFETY AND LINE MANAGEMENT. PATIENT HEARTRATE HAS INCREASED FROM 100'S THIS AM TO 110'S PATIENT IS COARSE IN THE UPPER AND DIM IN THE BASES. SPO2 >92% ON 7L RR 18-[address], INCONTINENT. PLAN FOR BED BATH IF AVAILABLE. RECIVING FLAGYL. NOT SIGNIFICANT CHANGE FROM SIGNAL WORKER. WILL CONTINUE TO MONITOR. NO CONCERNS FROM DAUGHTER PATIENT OR THIS A P SUPERVISOR.
--- NOTE | 2022-11-01 18:36 | NUR ---
END OF SHIFT: PATIENT STILL DENIES PAIN OF ANY KIND TO INCLUDE CHEST PAIN, DENIES SOB. SPO2 HAS BEEN MAINTAINED AT 92-96% IS CURRENLTY ON 3.5L PATIENT WAS HACKING AFTER THIN LIQUIDS AND TOLERATES NECTAR THICK LIQUIDS MUCH BETTER. PATIENT HAS BEEN MOSTLY COMPLIANT WITH CARE BUT STILL PULLS OFF O2 WHICH IS VERY NEEDED. AND PULLS AT IV, GOWN ETC. DID TOLERATE SOME BREAKS OFF RESTRAINTS THROUGHOUT THE DAY. FAMILY AT BEDSIDE, RASH HAS NOT WORSENED. PATIENT HAVING INCREASED APPETITE. LR ORDERED AT THE END OF SHIFT DUE TO POOR ORAL INTAKE BY HOSPITALIST. WILL CONTINUE TO MONITOR UNTIL SHIFT CHANGE. NO SIGN OF ACUTE DISTRESS.
[2022-11-02 04:26] LABS: BASOPHILS ABSOLUTE AUTO 0.06 K/mm3 (0.00-0.23); BASOPHILS PERCENT AUTO 1 % (0-2); EOSINOPHILS ABSOLUTE AUTO 0.18 K/mm3 (0.00-0.68); EOSINOPHILS PERCENT AUTO 2 % (0-6); Hematocrit 42.1 % (37.0-53.0); Hemoglobin 13.2 g/dL (13.5-17.5); IMMATURE GRAN ABSOLUTE AUTO 0.16 K/mm3 (0.00-0.10); IMMATURE GRAN PERCENT AUTO 2 % (0-1); LYMPHOCYTES PERCENT AUTO 9 % (21-46); MONOCYTES ABSOLUTE AUTO 0.43 K/mm3 (0.16-1.47); MONOCYTES PERCENT AUTO 4 % (4-13); Mean Corpuscular HGB 27.9 pg (26.0-34.0); Mean Corpuscular HGB Conc 31.4 g/dL (31.5-36.5); Mean Corpuscular Volume 89 fL (80-100); Mean Platelet Volume 9.9 fL (9.1-12.4); NEUTROPHILS ABSOLUTE AUTO 8.14 K/mm3 (1.96-9.15); NEUTROPHILS PERCENT AUTO 83 % (41-73); Platelet Count 246 K/mm3 (150-400); RDW Coefficient Variation 19.1 % (11.7-14.2); RDW Standard Deviation 60.9 fL (35.1-46.3); Red Blood Cell Count 4.73 M/mm3 (4.30-5.90); White Blood Cell Count 9.87 K/mm3 (4.00-11.30)
--- NOTE | 2022-11-02 04:40 | NUR ---
SHIFT SUMMARY PT A&O TO SELF. AT START OF SHIFT PT WAS VERY CONFUSED, PARANOID, AND AGITATED. PT REFUSED PO MEDICATION, WAS TRYING TO KNEE AND KICK STAFF. PHYSICIAN NOTIFIED, ORDERS PLACED FOR 1mg IV ATIVAN. PT CALM AND COOPERATIVE WITH CARE AFTER ADMINISTRATION. BILAT SWR REMAINED IN PLACE THROUGHOUT SHIFT. VSS, BP STABLE, AFIB 80-100's, UP TO 120's WHEN PT WAS AGITATED. SpO2> 92% ON 2-4L VIA NC. PT HAD CONTINENT AND INCONTINENT VOIDS, ATTENDS IN PLACE. NO BM THIS SHIFT. PT REMAINED IN BED. NO OTHER EVENTS, WILL REPORT TO ONCOMING RN.
[2022-11-02 04:48] LABS: Prothrombin Time Results 62.4 Sec (9.7-11.5)
[2022-11-02 04:56] LABS: International Normalized Ratio 6.73
[2022-11-02 05:56] LABS: Calcium, Blood 8.7 mg/dL (8.5-10.1); Creatinine, Blood 1.2 mg/dL (0.60-1.20); Potassium, Blood 3.7 mmol/L (3.5-5.5)
--- NOTE | 2022-11-02 11:06 | NUR ---
ASSUMPTION OF CARE: NEURO: PATIENT HAS BEEN COOPERATIVE WITH THIS RN, NIGHT RN'S HAD DIFFICULTY WITH INCREASED PARANOIA, AGGITATION, AND CONFUSION. CURRENLTY IS ALERT TO SELF. TIRED, STILL NEEDING SBWR DUE TO PULLING AT LINES, AND O2. PULM: PATIENT IS NEEDING 5L CURRENLTY TO MAINTAIN SPO2 > 92. WILL CONTINUE TO MONITOR AND TITRATE PER O2 DEMANDS. UNCOLLECTED SPUTUM SAMPLE DUE TO PATIENT COOPERATION. CARDIAC: DENIES PAIN OF ANY KIND, VERY MINIMALLY HYPERTENSIVE. PROVIDERS AWARE, NV IS 90-110'S, IMPROVES WITH AM BETA YVON. GI/: PATIENT USES THE URINAL IN THE BED WHEN EVALUATED AND ASKED, DARK DARK LEENA URINE, SLIGHTLY IMPROVED WITH FLUIDS. SKIN: TOLERATING SBWR WELL, NO SIGN OF BREAKDOWN DUE TO THESE, BREAKS WITH CARE ARE PROVIDED. PATIENT NOT AGGRESSIVELY PULLING AT THIS TIME AT RESTRAINT TOLERATING WELL. RASH ON BACK, WILL COTINUE TO MONITOR. CONCERNS: NO CONCERNS FROM THIS RN AT THIS TIME.
--- NOTE | 2022-11-02 18:10 | NUR ---
PT ARRIVED TO THE UNIT. SETTLED IN THE ROOM, PT IS CURRENTLY SLEEPING
--- NOTE | 2022-11-02 18:15 | NUR ---
TRANSFER/END OF SHIFT: DEDRICK IS BEING TRANSFERED TO MED FLOOR 352, MED NO TELE. REPORT GIVEN TO RECEIVING RN WITH NO FURTHER QUESTIONS COMMENTS OR CONCERNS. PATIENT CHANGES FROM ASSUMPTION OF CARE ARE SPO2 AT 93 96% ON 3L WAS ABLE TO GET OUT OF BED WITH 2 PERSON MAX ASSIST FWW AND GAIT BELT. PATIENT WITH BED BATH TODAY, PCT. STILL DENIES CHEST PAIN/PRESSURE. NO SIGN OF ACUTE DISTRESS. PATIENT FAMILY INFORMED, CHART AND BELONGING SENT WITH PATIENT. NO CONCERNS FROM THIS RN AT THIS TIME.
--- NOTE | 2022-11-03 04:31 | NUR ---
SUMMARY - PATIENT CONFUSED OVERNIGHT. ONLY ORIENTED TO SELF. PLEASANT WITH STAFF BUT HE DOES REMOVE AND ATTEMPT TO PULL OUT IV, REOMVE O2 AND FREQUNTLY REMOVES BREIF AND BLANKETS. BILATERAL SOFT WRIST RESTRAINTS IN PLACE OVERNGIHT TO PROTECT LINES AND PREVENT PATIENT FROM FALLING OUT OF BED. PATIENT WAS INCONTINENT AND CONTINENT OVERNIGHT. URINE VERY DARK LEENA. ENCOURAGED THICKENED WATER FREQUENTLY TO PATIENT. TURNED PATIENT IN BED [id number].
[2022-11-03 06:00] LABS: Prothrombin Time Results 67.9 Sec (9.7-11.5)
[2022-11-03 06:55] LABS: International Normalized Ratio 7.37
--- NOTE | 2022-11-03 07:10 | NUR ---
LAB CALLED CRITICAL INR 7.37. NOTIFIED DR. PINA. HE STATED HE WOULD EVALUATE PATIENT THIS MORNING AND JUST TO CONTINUE TO MONITOR IF NO ACTIVE BLEEDING PRESENT.
--- NOTE | 2022-11-03 19:21 | NUR ---
SHIFT SUMMARY PT AXO TO SELF, FAMILY AND FOLLOWING DIRECTIONS THOUGH IS STILL CONFUSED. VSS. PT UP OOB WITH 2 ASSIST, FWW AND GB. RESTRAINTS DC'D THIS SHIFT. BED ALARM ON, BED IN LOW POSITION, CALL LIGHT WITHIN REACH. PT ON 3L VIA NC.
--- NOTE | 2022-11-04 05:36 | NUR ---
SUMMARY - PATIENT CONFUSED OVERNIGHT. ONLY ORIENTED TO SELF AND FAMILY. PLEASANT WITH STAFF BUT HE DOES REMOVE O2 AND PULLED AN IV. PATIENT WAS INCONTINENT AND CONTINENT OVERNIGHT. PATIENT MORE ALERT OVERNIGHT AND WAS TURNING HIMSELF INDEPENDENTLY IN BED. OCCASIONALLY TRYING TO GET UP BUT EASILY REDIRECTED BACK INTO BED. VSS. NO ACUTE MEDICAL EVENTS. IV ABX GIVEN.
[2022-11-04 06:19] LABS: Prothrombin Time Results 59.7 Sec (9.7-11.5)
[2022-11-04 06:26] LABS: Bun/Creatinine Ratio 21.4 (12.0-20.0); Calcium, Blood 8.4 mg/dL (8.5-10.1); Creatinine, Blood 1.26 mg/dL (0.60-1.20); Potassium, Blood 4.3 mmol/L (3.5-5.5)
[2022-11-04 06:45] LABS: International Normalized Ratio 6.42
--- NOTE | 2022-11-04 16:17 | NUR ---
Pt was admitted with acute hypoxemic resp failure, and suspected aspiration causing increased cough. Pt's son was at bedside this afternoon, and [facility], he is electing home with hospice but has not chosen an agency yet. Attempted to give pt choice letter, but he seems to have left for the evening. Left voicemail, no return call. Spoke to Courtney, Rn [facility] who left pt choice letter for son and plans to finish the conversation tomorrow.
--- NOTE | 2022-11-04 19:35 | NUR ---
SUMMARY- PT ALERT TO SELF AND FAMILY. IMPULSIVE, FREQ ATTEMPTS TO GET OOB UNATTENDED DESPITE FREQ TEACHING OF CALL LIGHT AND SAFETY. MULT CALLS RELATED TO VIDIO MONITORING. PT AMBULATED IN ROOM WITH FIELD AGRONOMIST. TODAY, GOT UP TO BSC TO VOID. AND HAD BM THIS AM. MEAL SET UP AND ASSIST RELATED TO ASP RISK. SPEECH PLACED PT ON PUREE PER PT REQ AND ALSO THICK LIQ. DR PINA AWARE OF CONT ELEVATION OF INR AND HOLDING OFF ON DISCHARGE UNTIL THIS RANGE IS STABLE. ALSO GIVING FAMILY TIME TO GET ALL OF EQUIPTMENT THEY WILL NEED FOR HOME DC. FAMILY ALSO AGREED TO HH/HOSPICE, [facility] DC 11/05/22
--- NOTE | 2022-11-05 05:20 | NUR ---
SUMMARY - PATIENT CONFUSED OVERNIGHT. ONLY ORIENTED TO SELF AND FAMILY. PLEASANT WITH STAFF BUT HE DOES REMOVE O2 AND PULLED AN IV. PLACED PATIENT ON CONT PULSE OX TO ALERT STAFF WHEN HE REMOVE HIS CANNULA. PATIENT WAS CONTINENT OVERNIGHT. PATIENT TURNING HIMSELF INDEPENDENTLY IN BED. OCCASIONALLY TRYING TO GET UP SITTING AT EDGE OF BED, BUT EASILY REDIRECTED BACK INTO BED. VSS. NO ACUTE MEDICAL EVENTS. IV ABX GIVEN.
[2022-11-05 06:47] LABS: Bun/Creatinine Ratio 18.1 (12.0-20.0); Calcium, Blood 8.4 mg/dL (8.5-10.1); Creatinine, Blood 1.05 mg/dL (0.60-1.20); Potassium, Blood 4.1 mmol/L (3.5-5.5)
[2022-11-05 06:57] LABS: International Normalized Ratio 2.51; Prothrombin Time Results 24.8 Sec (9.7-11.5)
--- NOTE | 2022-11-05 17:04 | NUR ---
SUMMARY- PT ALERT TO SELF AND FAMILY. UP IN CHAIR FOR MEALS. TOLERATING FOOD AND FLUID WITH SUPERVISION RELATED TO ASP RISK. PT OCC IMPULSIVE AND FORGETFUL, SET OFF CHAIR AND BED ALARM APPROX 8 TIMES TODAY, ABLE TO GET TO HIM IN TIME TO HELP. ALSO CLAUDIA WALLACE AIDING IN ALERTING STAFF TO PT EXIT ATTEMPTS. NO FALLS. PT AMBULATES TO BATHROOM SBA WITH WALKER. VOIDS IN TOILET. PLAN TO DC HOME WITH HOME HEALTH HOSPICE. [facility] BACKED UP UNTIL SAT FOR EVAL, SO DC IS ON HOLD UNTIL SET UP.
--- NOTE | 2022-11-05 18:20 | NUR ---
NOTE RELATED TO [facility]- DR SEE TAY CALLED RN AT 1730 STATED HE JUST SPOKE WITH PT'S WHO IS NOT WILLING TO HAVE [facility], THE PT'S SON STAY IN THE HOUSE TO HELP WITH PT'S STAY. 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 WILL RELAY MESSAGE TO DRUM HANDLER, NIGHT RN AND UTILIZATION SUPERVISOR.
[2022-11-06 04:54] LABS: International Normalized Ratio 1.64; Prothrombin Time Results 16.7 Sec (9.7-11.5)
--- NOTE | 2022-11-06 05:19 | NUR ---
ALERT TO SELF ONLY. CONFUSED AND ANXIOUS. IMPULSIVE; YURIY VEST INITIATED AND NEW (1X) ORDER FOR SEROQUEL 25 MG GIVEN; NO NOTICIBLE EFFECT ON AGITATION. CALLED AGAIN FOR SOFT WRISTS /SIDE RAILSX4 TO BE ADDED. CONT. PULSE OXIMETRY; SPO2 90 TO 94% ON 4L NC. DESAT TO 84% ON ROOM AIR (WAS REMOVING HIS NC). TOOK PILLS WELL (WHOLE) WITH APPLESAUCE. SLEEP PROMOTED. CALL LIGHT IN REACH; ENCOURAGED TO MAKE NEEDS KNOWN. BED ALARM SET.
[2022-11-06 06:19] LABS: Calcium, Blood 8.3 mg/dL (8.5-10.1); Creatinine, Blood 1.14 mg/dL (0.60-1.20); Potassium, Blood 4.1 mmol/L (3.5-5.5)
--- NOTE | 2022-11-06 17:03 | NUR ---
SHIFT SUMMARY: NO ACUTE EVENTS. RESTRAINTS IN PLACE (SOFT WRIST BILATERALLY, YURIY VEST, 4 SIDE RAILS WHILE IN BED, REMOTE MONITORING). HAS BEEN MILDLY AGITATED, TRYING TO GET OOB, PULLING ON LINES, PULLING AGAINST RESTRAINTS; BEHAVIORS NOT SEVERE ENOUGH TO WARRANT ADMINISTRATION OF SEDATING MEDICATIONS. AMBULATED IN HALLWAY NEAR ROOM X 2 WITH 1 PERSON, GAIT BELT, AND FWW. UP IN CHAIR PART OF SHIFT. TOLERATING PO INTAKE. O2 @ 4 L/MIN HF NC, ON CONT OXIMETRY, DESATS TO 84-86% WHEN HE TAKES OFF NC, REQUIRES SEVERAL MINUTES TO RECOVER AFTER ACTIVITY.
[2022-11-07 05:20] LABS: International Normalized Ratio 1.69; Prothrombin Time Results 17.1 Sec (9.7-11.5)
--- NOTE | 2022-11-07 07:04 | NUR ---
ALERT TO SELF ONLY. CONFUSED AND ANXIOUS. IMPULSIVE; YURIY VEST, SOFT WRIST RESTRAINTS, AND SIDE RAILSX4 FOR PATIENT SAFETY. 1X ASSIST TRANSFER WTH WALKER. SPO2 90 TO 94% ON 4L NC. DESAT TO 84% WITH COUGHING. DOES BETTER WITH PILLS CRUSHED WITH APPLESAUCE. SLEEP PROMOTED. CALL LIGHT IN REACH; ENCOURAGED TO MAKE NEEDS KNOWN. BED ALARM SET.
--- NOTE | 2022-11-07 16:45 | NUR ---
SHIFT SUMMARY: NO ACUTE EVENTS. OXYGEN TITRATED DOWN TO 2 L/MIN NC WITH SATURATIONS 89-92%. BREATH SOUNDS VERY DIM, OCC ENERGY INFRASTRUCTURE ENGINEER COUGH. STILL SOME JHA, BUT RECOVERY TIME IS SHORTER. OOB WITH 1 PERSON, GAIT BELT, AND FWW; GAIT IS WEAK, CAN ONLY GO SHORT DISTANCE. TOOK A SHOWER AND SHAVED WITH ASSISTANCE. SON AND DIL VISITED TODAY, WATCHED A FOOTBALL GAME WITH HIM. SON IS HOPING SNF PLACEMENT CAN BE FOUND THIS WEEK, BUT PHYSICAL THERAPY IS RECOMMENDING HOME WITH HOME HEALTH.
--- NOTE | 2022-11-07 22:41 | NUR ---
NEAR CONSTANT ATTEMPTS TO EXIT BED (UNRELATED TO URINATION NEEDS). ANXIOUS, ALERT TO SELF ONLY. REMOVING CONT. PULSE OX FREQUENTLY. ATTEMPTING TO REMOVE IV SITE DRESSING OCCASIONALLY. YURIY VEST INITIATED AT 2200. PULSE OX SENSOR PLACED ON TOE. PRN ZYPREXA 5MG GIVEN FOR ANXIETY/ AGITATION. LIGHTS DOWN /TV OFF/ SLEEP ENCOURAGED. CALL LIGHT IN REACH. FREQUENT ROUNDING /ASSESSMENT OF NEEDS.
[2022-11-08 05:31] LABS: International Normalized Ratio 1.99
--- NOTE | 2022-11-08 18:13 | NUR ---
SHIFT SUMMARY- PT IS ALERT, PLESANT AND COOPERATIVE. HE IS IN A YURIY. HE IS IMPULSIVE AND HAS A DIFFICULT TIME FOLLOWING DIRECTIONS. HE WAS UP TO THE CHAIR MOST OF THIS MORNING AND SLEPT MUCH OF THIS AFTERNOON. HE IS EATING AND DRINKING WELL. FAMILY WAS AT BEDSIDE THIS AFTERNOON. HIS BED IS IN THE LOW POSITION AND CALL LIGHT IS WITIN REACH.
--- NOTE | 2022-11-09 05:02 | NUR ---
NO ACUTE CHANGES FROM LAST INSTRUCTIONAL SERVICES LIBRARIAN. ALERT TO SELF ONLY. RESTLESS AND ANXIOUS WITH ATTEMPTS TO EXIT BED FREQUENTLY. YURIY VEST IN PLACE.
[2022-11-09 06:36] LABS: International Normalized Ratio 2.24; Prothrombin Time Results 22.3 Sec (9.7-11.5)
[2022-11-09 06:43] LABS: Bun/Creatinine Ratio 11.1 (12.0-20.0); Calcium, Blood 8.7 mg/dL (8.5-10.1); Creatinine, Blood 1.17 mg/dL (0.60-1.20)
[2022-11-09] MEDS ORDERED: METO25 PO (16:52)
--- NOTE | 2022-11-09 18:00 | NUR ---
DISCHARGE NOTE PT DISCHARGED TO HOME WITH HOME HEALTH. PT'S NEIGHBORS, ANGELICA AND IVAN, ARRIVED TO PICK HIM UP AND TAKE HIM HOME. HOME O2 WAS COMPLETED AND PT SENT HOME WITH O2. IV WAS REMOVED SUCCESSFULLY. DISCHARGE EDUCATION CONDUCTED WITH NEIGHBORS PRESENT. MEDICATIONS FAXED TO THE PHARMACY OF HIS CHOICE. EDUCATION PROVIDED.
== END 2022-11-09 17:42 | disposition home health service (06) | DRG 871 ==
LOC: ER 12:41 → MEDS 15:12 → PCU 15:12 → MEDS 11-02 17:53
PROVIDERS: Emergency Medicine; Family Medicine; Nurse Practitioner Acute Care; Student in an Organized Health Care Education/Training Program; ADMIT Internal Medicine
DX: A41.9 Sepsis, unspecified organism (principal); G92.8 Other toxic encephalopathy; J10.01 Influenza due to other identified influenza virus with the same other identified influenza virus pneumonia; J96.01 Acute respiratory failure with hypoxia; I21.A1 Myocardial infarction type 2; J69.0 Pneumonitis due to inhalation of food and vomit; I48.92 Unspecified atrial flutter; I50.32 Chronic diastolic (congestive) heart failure; E87.20 Acidosis, unspecified; N17.9 Acute kidney failure, unspecified; E87.0 Hyperosmolality and hypernatremia; R65.20 Severe sepsis without septic shock; Z20.822 Contact with and (suspected) exposure to COVID-19; K21.9 Gastro-esophageal reflux disease without esophagitis; E78.5 Hyperlipidemia, unspecified; E03.9 Hypothyroidism, unspecified; E86.0 Dehydration; E80.6 Other disorders of bilirubin metabolism; N18.31 Chronic kidney disease, stage 3a; E87.6 Hypokalemia; Z96.653 Presence of artificial knee joint, bilateral; Z98.890 Other specified postprocedural states; Z79.01 Long term (current) use of anticoagulants; Z79.890 Hormone replacement therapy; Z79.899 Other long term (current) drug therapy
CPT/HCPCS: 0241U; 36415; 36600; 71045; 71260; 76705; 80048; 80053; 82247; 82248; 82803; 83605; 83735; 83880; 84145; 84484; 85025; 85027; 85610; 87040; 92526; 92610; 93005; 93010; 94660; 94761; 94762; 97110; 97116; 97162; 97530; 99285-25; A9270; J0696; J2060; J3480; J7030; J7050; J7070; J7120; Q9967

== ENCOUNTER → 2022-11-16 | Outpatient (CLI) | payer MEDICARE, OTHER ==
[~2022-11-16] MED LIST changes: +K-Dur10 MEQ PO; +METO25 PO
[2022-11-16 12:12] LABS: BASOPHILS ABSOLUTE AUTO 0.05 K/mm3 (0.00-0.23); BASOPHILS PERCENT AUTO 1 % (0-2); EOSINOPHILS ABSOLUTE AUTO 0.26 K/mm3 (0.00-0.68); EOSINOPHILS PERCENT AUTO 5 % (0-6); Hematocrit 43.6 % (37.0-53.0); Hemoglobin 13.8 g/dL (13.5-17.5); IMMATURE GRAN ABSOLUTE AUTO 0.01 K/mm3 (0.00-0.10); IMMATURE GRAN PERCENT AUTO 0 % (0-1); LYMPHOCYTES ABSOLUTE AUTO 1.03 K/mm3 (0.84-5.20); LYMPHOCYTES PERCENT AUTO 21 % (21-46); MONOCYTES ABSOLUTE AUTO 0.42 K/mm3 (0.16-1.47); MONOCYTES PERCENT AUTO 9 % (4-13); Mean Corpuscular HGB 29.2 pg (26.0-34.0); Mean Corpuscular HGB Conc 31.7 g/dL (31.5-36.5); Mean Corpuscular Volume 92 fL (80-100); Mean Platelet Volume 10.2 fL (9.1-12.4); NEUTROPHILS ABSOLUTE AUTO 3.09 K/mm3 (1.96-9.15); NEUTROPHILS PERCENT AUTO 64 % (41-73); Platelet Count 187 K/mm3 (150-400); RDW Coefficient Variation 20.6 % (11.7-14.2); RDW Standard Deviation 68.1 fL (35.1-46.3); Red Blood Cell Count 4.73 M/mm3 (4.30-5.90); White Blood Cell Count 4.86 K/mm3 (4.00-11.30)
[2022-11-16 12:16] LABS: International Normalized Ratio 1.72; Prothrombin Time Results 17.4 Sec (9.7-11.5)
[2022-11-16 13:39] LABS: Alanine Aminotransfer (ALT/SGP 26 U/L (12-78); Albumin, Blood 2.5 g/dL (3.4-5.0); Albumin/Globulin Ratio 0.5 (0.8-1.8); Alk Phos 102 U/L (50-136); Anion Gap 6 mmol/L (6-16); Aspartate Aminotrans (AST/SGOT 24 U/L (12-37); Bilirubin, Total 1.1 mg/dL (0.1-1.0); Blood Urea Nitrogen 9 mg/dL (8-24); Bun/Creatinine Ratio 7.2 (12.0-20.0); CHOL/HDL RATIO 2.9; CO2, Blood 26 mmol/L (21-32); Chloride, Blood 105 mmol/L (98-108); Cholesterol 120 mg/dL (50-200); Creatinine, Blood 1.25 mg/dL (0.60-1.20); Globulin, Blood 5.3 g/dL (2.2-4.0); Glomerular Filtration Rate 57 (60-); Glucose, Blood 96 mg/dL (70-99); HDL Cholesterol 42 mg/dL (>39); LDL/HDL RATIO 1.5; Low Density Lipoprotein Chol 62 mg/dL (0-110); Sodium, Blood 137 mmol/L (136-145); Thyroxine (T4) 7.6 ug/dL (4.5-12.1); Total Protein, Blood 7.8 g/dL (6.4-8.2); Triglycerides 78 mg/dL (30-160); Very Low Density Lipoprot Chol 15 mg/dL (6-32)
== END | disposition home or self-care (01) ==
LOC: LAB SHORT 10:12
PROVIDERS: Family Medicine
DX: I11.0 Hypertensive heart disease with heart failure (principal); I50.9 Heart failure, unspecified; E78.2 Mixed hyperlipidemia; E03.9 Hypothyroidism, unspecified; I48.92 Unspecified atrial flutter
CPT/HCPCS: 80053; 80061; 83880; 84436; 84443; 85025; 85610